=== PATIENT | male | born 1950 | race Caucasian/White ===

== ENCOUNTER 2023-05-11 09:35 | Emergency (ER) | payer MEDICARE, BC, SELFPAY ==
[2023-05-11 09:42] VITALS: BP 170/71; PULSE 65; RESP 18; TEMP 36.6; O2SAT 99; BMI 25.8
--- NOTE | 2023-05-11 11:17 | ED.GENADULT ---
HPI - General Adult General Time Seen by Provider: 11:18 Date Seen: 05/30/23 Chief complaint: Extremity Pain/Injury, Lower Stated complaint: L foot injury Time Seen by Provider: 05/11/23 10:49 Source: patient, RN notes reviewed and old records reviewed Mode of arrival: ambulatory Limitations: no limitations History of Present Illness HPI narrative: 72-year-old male with history of hypertension and gout who presents with pain and swelling of left great toe. This been going on for about 4 days. Has been taking ibuprofen for this. Distant history of gout about 15 years ago and feels like this feels similar. No history of trauma. Denies fevers or chills. Related Data Home Medications Medication Instructions Recorded Confirmed hydrochlorothiazide 12.5 mg tablet 12.5 mg PO DAILY 04/09/23 04/18/23 losartan 100 mg tablet 100 mg PO DAILY 04/09/23 04/18/23 losartan 25 mg tablet 25 mg PO DAILY 04/09/23 04/18/23 losartan 50 mg tablet 50 mg PO DAILY 04/09/23 04/18/23 nifedipine 30 mg tablet,extended mg PO 04/09/23 04/18/23 release 24 hr Previous Rx's Medication Instructions Recorded allopurinol 100 mg tablet 100 mg PO DAILY #10 tabs 05/11/23 Allergies Allergy/AdvReac Type Severity Reaction Status Date / Time No Known Drug Allergies Allergy Verified 04/18/23 15:10 [facility] Medical History (Updated 05/11/23 @ 11:31 by Pantera Romero MD) Hypertension ?I10 - Essential (primary) hypertension (ICD-10) Social History Smoking Status: Never smoker Exam Narrative: Exam Narrative: General: well nourished , NAD Head: Atraumatic and normocephalic ENT: External ears and external nose are normal Eyes: Conjunctiva clear, pupils are equal reactive, external ocular motions are intact Neck: Full spontaneous range of motion of the neck Lungs: No respiratory distress Musculoskeletal: Moderate effusion of the right MCP joint with some surrounding erythema, no tracking erythema up the leg, minimal pain with passive movement of the joint Neurologic: No gross focal neurologic deficits Skin: No rashes Psych: Mood and affect are appropriate Const: Vital Signs, click to edit/add: Vital Signs - 24 hr 05/11/23 09:42 Temperature 97.9 F Pulse Rate [Right Pulse Oximeter] 65 Respiratory Rate 18 Blood Pressure [Ri ght Upper Arm] 170/71 H Pulse Oximetry 99 Oxygen Delivery Me thod Room Air Course Course Hospital Course: Patient seen examined, prior records reviewed with history of rotator cuff tear on the right previously seen by Orthopedics earlier this spring. Patient presents with pain of the left MCP joint which is been going on for about 4 days. Pain improves with ibuprofen. Has a history of gout and this feels similar. Pain is worse at night. On exam, moderate joint effusion of the left MCP with warmth and effusion, minimal pain with passive movement. Symptoms most likely represent gout which patient is already partially treated with nonsteroidals, consider septic arthritis but no fever, no pain with passive movement of the joint, no risk factors. Patient was started on allopurinol, continue ibuprofen and discharged Vital Signs Vital signs: Initial Vital Signs Temperature 97.9 F 05/11/23 09:42 Temperature Source Temporal Artery Scan 05/11/23 09:42 Pulse Rate 65 05/11/23 09:42 Respiratory Rate 18 05/11/23 09:42 Blood Pressure 170/71 H 05/11/23 09:42 Blood Pressure Mean 104 05/11/23 09:42 Blood Pressure Position Sitting 05/11/23 09:42 Pulse Oximetry 99 05/11/23 09:42 Oxygen Delivery Method Room Air 05/11/23 09:42 Vital Signs Temperature 97.9 F 05/11/23 09:42 Pulse Rate 65 05/11/23 09:42 Respiratory Rate 18 05/11/23 09:42 Blood Pressure 170/71 H 05/11/23 09:42 Pulse Oximetry 99 05/11/23 09:42 Oxygen Delivery Method Room Air 05/11/23 09:42 Temperature 97.9 F 05/11/23 09:42 Pulse Rate 65 05/11/23 09:42 Respiratory Rate 18 05/11/23 09:42 Blood Pressure 170/71 H 05/11/23 09:42 Pulse Oximetry 99 05/11/23 09:42 Oxygen Delivery Method Room Air 05/11/23 09:42 Discharge Plan Discharge Clinical Impression: Gout Patient Disposition: Home, Self-Care Condition: Stable Instructions: Low Purine Diet (ED), Gout (ED) Additional Instructions: Take ibuprofen 600 mg every 6 hours for the next 48 hours Follow-up if you develop fever, pain gets worse, or you get redness tracking up the ankle and lower leg Activity Level: No Restrictions Discharge Diet: Regular Prescriptions: New allopurinol 100 mg tablet 100 mg PO DAILY Qty: 10 0RF No Action losartan 100 mg tablet 100 mg PO DAILY hydrochlorothiazide 12.5 mg tablet 12.5 mg PO DAILY losartan 50 mg tablet 50 mg PO DAILY losartan 25 mg tablet 25 mg PO DAILY nifedipine 30 mg tablet extended release 24hr PO Follow Up/Referrals: Dre Hinojosa MD [Primary Care Provider] - Stand Alone Forms: [employer] Info Instructions
--- NOTE | 2023-05-11 11:25 | ED.NURSE ---
Dr. Romero in room.
== END 2023-05-11 11:43 | disposition home or self-care (01) ==
LOC: ED 11:32
PROVIDERS: Emergency Provider Family Medicine; PCP Family Medicine
DX: M10.9 Gout, unspecified (principal)
CPT/HCPCS: 99282; 99283

== ENCOUNTER 2024-10-21 15:35 | Emergency (ER) | payer MEDICARE, BC, SELFPAY ==
[2024-10-21 15:46] VITALS: BP 171/87; PULSE 62; RESP 18; TEMP 36.6; O2SAT 98
[2024-10-21 17:08] VITALS: BP 161/83; PULSE 57; RESP 16; O2SAT 98
[2024-10-21 17:40] LABS: Chloride* 93 mmol/L (96-114); Potassium* 4.4 mmol/L (3.6-5.1); Sodium* 128 mmol/L (135-149)
[2024-10-21 17:43] LABS: Anion Gap 6 mEq/L (7-15); Blood Urea Nitrogen* 19 mg/dL (7-30); Calcium* 9.2 mg/dL (8.4-10.6); Carbon Dioxide* 29 mmol/L (20-32); Creatinine* 0.8 mg/dL (0.5-1.5); Estimated Glomerular Filt Rate 94 ml/min; Glucose* 91 mg/dL (60-115)
--- NOTE | 2024-10-21 17:52 | ED.GENADULT ---
HPI - General Adult General Chief complaint: Unspecified Complaint, Adult Stated complaint: Poss Fatigued from beta blockers Time Seen by Provider: 10/21/24 16:48 Source: patient Mode of arrival: ambulatory Limitations: no limitations History of Present Illness HPI narrative: 73-year-old male presenting today he with concerns about his current medication. Patient has history of hypertension and he has been experimenting with different drugs for blood pressure control with his primary care provider. He was on olmesartan and chlorthalidone which provided good blood pressure control, however his sodium dropped quite a bit he has been having issues with hyponatremia. Because of this they stop the chlorthalidone and switched him to olmesartan and atenolol. This occurred approximately 2 months ago. With the initiation of the atenolol he became quite fatigued. States that he has been napping more during the day. Complains of increasing shortness of breath with physical activity. States that he generally gets his pulse up to 120 when he goes jogging which she does regularly but now his pulse does not get above 90 and this causes him to not be able to sustain his physical activity as long as he normally does. Today he is requesting to stop his atenolol. I asked the patient if he has had this discussion with his primary care provider and he states that he can not get a hold of them. He would also like to have his sodium rechecked. Patient states that he does still take his chlorthalidone once or twice per week when his blood pressure is elevated. Patient denies fevers, chills, nausea, vomiting. No changes in his appetite. No difficulty sleeping. Continues to exercise regularly. Related Data Home Medications ?Medication ?Instructions ?Recorded ?Confirmed losartan 100 mg tablet 100 mg PO DAILY 04/09/23 02/15/24 hydrochlorothiazide 12.5 mg tablet 12.5 mg PO DAILY 02/08/24 02/15/24 dextromethorphan-guaifenesin 10 1 tab-cap PO ONCE PRN 02/15/24 02/15/24 mg-200 mg capsule (Coricidin HBP Chest Congestion-Cough) Allergies Allergy/AdvReac Type Severity Reaction Status Date / Time No Known Drug Allergies Allergy Verified 02/15/24 09:55 Review of Systems Status of ROS: Reports: 10 or more systems reviewed and unremarkable except as noted in History and below [facility] Medical History Hypertension ?I10 - Essential (primary) hypertension (ICD-10) Social History Smoking Status: Never smoker How often do you have a drink containing alcohol: 2-3 times a week AUDIT-C Alcohol total score: 3 Non-prescribed substance use: denies use Exam Narrative: Exam Narrative: Well-nourished well-developed, very healthy-appearing patient in no acute distress. Alert and oriented. Answers questions appropriately. Mood and affect are appropriate. Thoughts are goal oriented and rational. No tangential or magical thinking noted. Patient speaks in full sentences without needing to catch his breath. HEENT: Normocephalic atraumatic. Pupils are equally round reactive to light. Extraocular muscles are intact. Conjunctivae are moist without any icterus noted. Moist mucous membranes. Cardiovascular: Heart is regular rate and rhythm S1 and S2 are present without any murmurs. Lungs: Clear to auscultation bilaterally no wheezes rhonchi or rales are appreciated. Patient takes deep breaths without any discomfort. Extremities: Bilateral lower extremities are without edema. Normal DP and PT pulses. Skin: Well perfused without any obvious rashes. Const: Vital Signs, click to edit/add: Vital Signs - 24 hr 10/21/24 15:46 10/21/24 17:08 Temperature 97.8 F Pulse Rate [Pulse Oximeter] 62 57 L Respiratory Rate 18 16 Blood Pressure [Ri ght Upper Arm] 171/87 H 161/83 H Pulse Oximetry 98 98 Oxygen Delivery Me thod Room Air Room Air Course Course ED Course: Discussed with the patient that many other things can cause fatigue and increasing shortness of breath with physical activity including coronary artery disease, lung pathology. We discussed doing more thorough workup including EKG, labs. Patient states that he is quite convinced that it is the atenolol causing his symptoms and he is not wish to have any further workup today aside from having his electrolytes checked. Sodium is a bit low at 128 today. Of note, patient denies any seizure activity, difficulty breathing, muscle pain, confusion, lethargy, headaches, dizziness, gait disturbances. Vital Signs Vital signs: Initial Vital Signs Temperature 97.8 F 10/21/24 15:46 Temperature Source Temporal Artery Scan 10/21/24 15:46 Pulse Rate 62 10/21/24 15:46 Pulse Rhythm Regular 10/21/24 15:46 Respiratory Rate 18 10/21/24 15:46 Blood Pressure 171/87 H 10/21/24 15:46 Blood Pressure Mean 115 H 10/21/24 15:46 Blood Pressure Position Sitting 10/21/24 15:46 Pulse Oximetry 98 10/21/24 15:46 Oxygen Delivery Method Room Air 10/21/24 15:46 Vital Signs Temperature 97.8 F 10/21/24 15:46 Pulse Rate 62 10/21/24 15:46 Respiratory Rate 18 10/21/24 15:46 Blood Pressure 171/87 H 10/21/24 15:46 Pulse Oximetry 98 10/21/24 15:46 Oxygen Delivery Method Room Air 10/21/24 15:46 Temperature 97.8 F 10/21/24 15:46 Pulse Rate 57 L 10/21/24 17:08 Respiratory Rate 16 10/21/24 17:08 Blood Pressure 161/83 H 10/21/24 17:08 Pulse Oximetry 98 10/21/24 17:08 Oxygen Delivery Method Room Air 10/21/24 17:08 Medical Decision Making MDM Narrative Medical decision making narrative: 73-year-old male with fatigue that started when he initiated atenolol. Again we discussed other potential life-threatening causes of shortness of breath patient the was not wish to have any further workup at this time. We discussed weaning off of the atenolol in stopping the chlorthalidone. Follow-up with primary care to repeat sodium levels. Lab Data Lab results reviewed: Yes I reviewed the patient's lab results Labs: Lab Results 10/21/24 Range/Units 17:14 Sodium 128 L (135-149) mmol/L Potassium 4.4 (3.6-5.1) mmol/L Chloride 93 L (96-114) mmol/L Carbon Dioxide 29 (20-32) mmol/L Anion Gap 6 L (7-15) mEq/L BUN 19 (7-30) mg/dL Creatinine 0.8 (0.5-1.5) mg/dL Estimated GFR 94 ml/min Glucose 91 (60-115) mg/dL Calcium 9.2 (8.4-10.6) mg/dL Discharge Plan Discharge Clinical Impression: Hyponatremia, Medication side effect Additional Instructions: Wean off of the atenolol. Take a half tablet daily for a week then a half tablet every other day for a week then stop. Recommend stopping the chlorthalidone as your sodium continues to be low. Follow-up with your primary care provider at the end of the week or early next week to have a repeat sodium checked. Return to the emergency department if you develop headache, vomiting, confusion, or lethargy. Prescriptions: No Action losartan 100 mg tablet 100 mg PO DAILY hydrochlorothiazide 12.5 mg tablet 12.5 mg PO DAILY Coricidin HBP Chest Tono-Cough 10-200 mg capsule 1 tab-cap PO ONCE PRN Follow Up/Referrals: BRAULIO LONG DO [Primary Care Provider] - Stand Alone Forms: [employer] Info Instructions
== END 2024-10-21 18:08 | disposition home or self-care (01) ==
PROVIDERS: Emergency Provider Family Medicine; PCP Student in an Organized Health Care Education/Training Program
DX: E87.1 Hypo-osmolality and hyponatremia (principal); T44.7X5A Adverse effect of beta-adrenoreceptor antagonists, initial encounter
CPT/HCPCS: 36415; 80048; 99283; 99284